=== PATIENT | female | born 1975 | race Hispanic/Latino ===

== ENCOUNTER 2022-03-08 00:20 | Emergency (ER) | payer BC, OTHER ==
[~2022-03-08] VITALS: Ht 157.5 cm; Wt 93.9 kg
[2022-03-08 00:22] VITALS: BP 155/92
[2022-03-08] MEDS ORDERED: PRED50TA2 PO (00:47)
[2022-03-08] MEDS ORDERED: CLIN-141 PO (00:47)
[2022-03-08] MEDS ORDERED: SOLU-MEDROL 125MG VIAL IM ONE (01:00)
[2022-03-08] MEDS ORDERED: CEFTRIAXONE 1G VIAL IM ONE (01:00)
== END 2022-03-08 02:00 | disposition home or self-care (01) ==
LOC: EDBD 00:20 → EDH 00:20
DX: J02.9 Acute pharyngitis, unspecified (principal); E78.00 Pure hypercholesterolemia, unspecified; I10 Essential (primary) hypertension; Z90.49 Acquired absence of other specified parts of digestive tract; Z98.890 Other specified postprocedural states; Z88.2 Allergy status to sulfonamides; Z88.1 Allergy status to other antibiotic agents
CPT/HCPCS: J0696; J2930